=== PATIENT | female | born 1995 | race Caucasian/White ===

== ENCOUNTER 2016-10-24 08:32 | Emergency (ER) ==
[2016-10-24 08:47] VITALS: BP 144/95; TEMP 97.9; BMI 45.3
[2016-10-24 09:14] LABS: URINE PREGNANCY INTERNAL QC INTERNAL QC VALID
--- NOTE | 2016-10-24 09:32 | DI ---
EXAM: Chest two views HISTORY: Cough COMPARISON: None TECHNIQUE: Two views of the chest were performed FINDINGS: The lungs are clear. There is no pleural effusion or pneumothorax. The heart is normal in size. The mediastinal contour is normal. There are no acute abnormalities of the bones. IMPRESSION: No acute cardiopulmonary process.
--- NOTE | 2016-10-24 09:48 | ED.PDOC ---
General ED Provider: Dr. MONICA ORTIZ Chief Complaint: Cough Stated Complaint: cough Time Seen by Physician: 08:40 Mode of Arrival: Walk-In Information Source: Patient Exam Limitations: No limitations Nursing and Triage Documentation Reviewed and Agree: Yes Respiratory Complaint Exam - Respiratory Complaint/Exam Symptoms Are: Still present Timing: Constant Initial Severity: Moderate Current Severity: Moderate Location: Chest Character: Reports: Non-productive cough Aggravating: Reports: None Alleviating: Reports: None Associated Signs and Symptoms: Reports: Nasal congestion, Sore throat History of Healthcare-Acquired Pneumonia: No Related Surgical History: Reports: None Pulmonary Embolism Risk Factors: None Cardiac Risk Factors: Reports: None Pseudomonas Risk Factors: Reports: None Tuberculosis Risk Factors: Reports: None Status Asthmaticus Risk Factors: Reports: None Home Oxygen Use: No Recent Stress Test: No Recent Echo/LV Function: No Current Antibiotic Use: No Current Asthma Medication Use: No Respiratory Distress: None Inadequate Respiratory Effort: No Dysphagia Present: No Stridor Present: No JVD Present: No Accessory Muscle Use: No Retractions: Not Present Diminished Breath Sounds: No Sinus Tenderness: None Grunting Respirations: No Kussmaul Respirations: No Differential Diagnoses: Pneumonia, Bronchitis Review of Systems - Review Of Systems Constitutional: Reports: No symptoms Eyes: Reports: No symptoms Ears, Nose, Mouth, Throat: Reports: No symptoms Respiratory: Reports: Cough Cardiac: Reports: No symptoms GI: Reports: No symptoms : Reports: No symptoms Musculoskeletal: Reports: No symptoms Skin: Reports: No symptoms Neurological: Reports: No symptoms Endocrine: Reports: No symptoms Hematologic/Lymphatic: Reports: No symptoms All Other Systems: Reviewed and Negative Past Medical History - Past Medical History Endocrine: Reports: None Cardiovascular: Reports: None Respiratory: Reports: None Hematological: Reports: None Gastrointestinal: Reports: None Genitourinary: Reports: None Neuro/Psych: Reports: None Musculoskeletal: Reports: None Cancer: Reports: None Last Menstrual Period: sep 17, 2016 - Surgical History General Surgical History: Reports: None - Family History Family History: Reports: None - Social History Smoking Status: Current every day smoker, Light tobacco smoker Hx Substance Use: No Alcohol Screening: None Physical Exam - Physical Exam Appearance: Well-appearing, No pain distress, Well-nourished Eyes: ERNESTO, EOMI, Conjunctiva clear ENT: Ears normal, Nose normal, Oropharynx normal Respiratory: Airway patent, Breath sounds clear, Breath sounds equal, Respirations nonlabored Cardiovascular: RRR, Pulses normal, No rub, No murmur GI/: Soft, Nontender, No masses, Bowel sounds normal, No Organomegaly Musculoskeletal: Normal strength, ROM intact, No edema, No calf tenderness Skin: Warm, Dry, Normal color Neurological: Sensation intact, Motor intact, Reflexes intact, Cranial nerves intact, Alert, Oriented Psychiatric: Affect appropriate, Mood appropriate Critical Care Note - Critical Care Note Total Time (mins): 0 Course - Course Orders, Labs, Meds: Lab Review 10/24/16 09:05 Urine Test Negative Orders Category Date Time Status URINE Stat LAB 10/24/16 09:05 Completed CHEST, 2 VIEWS PA & LAT Stat RADS 10/24/16 09:01 Completed Vital Signs: Temp Pulse Resp BP Pulse Ox 10/24/16 08:32 97.9 F 106 H 20 144/95 H 96 Departure - Departure Time of Disposition: 09:47 Disposition: HOME SELF-CARE Discharge Problem: Cough Instructions: Cold Symptoms (ED), Acute Cough (ED), Wheezing (ED) Condition: Good Pt referred to PMD for follow-up: No Additional Instructions: Please call your Family Physician as soon as possible to schedule a follow-up appointment. Allergies/Adverse Reactions: Allergies latex Adverse Reaction (Verified 10/24/16 08:40) Difficulty Breathing Home Medications: Ambulatory Orders 1 [No Reported Medications] 10/24/16 Disposition Discussed With: Patient
== END 2016-10-24 09:55 | disposition home or self-care (01) ==
LOC: ED 08:32
DX: R05 Cough (principal); J02.9 Acute pharyngitis, unspecified; R09.81 Nasal congestion; F17.210 Nicotine dependence, cigarettes, uncomplicated
CPT/HCPCS: 81025; 99283

== ENCOUNTER 2016-12-31 16:51 | Emergency (ER) ==
[2016-12-31 16:59] VITALS: BP 144/92; TEMP 98.2; BMI 39.4
--- NOTE | 2016-12-31 17:18 | ED.PDOC ---
General ED Provider: Dr. MONICA ORTIZ Chief Complaint: Respiratory Complaint Stated Complaint: cough Time Seen by Physician: 17:00 Mode of Arrival: Walk-In Information Source: Patient Exam Limitations: No limitations Primary Care Provider: TIMOTHY MCNULTY Nursing and Triage Documentation Reviewed and Agree: Yes Respiratory Complaint Exam - Respiratory Complaint/Exam Onset/Duration: coughx 2 months Symptoms Are: Resolved Timing: Intermittent Initial Severity: Mild Current Severity: None Location: Chest Character: Reports: Non-productive cough Aggravating: Reports: None Alleviating: Reports: None, Spontaneous resolution Associated Signs and Symptoms: Denies: Rapid breathing, Dyspnea, Fever, Chills, Chest pain, Pleuritic chest pain, Wheezing, Hemoptysis, Dizziness, Calf pain, Calf swelling, Edema, URI, Nasal congestion, Hoarseness, Sinus discomfort, Vomiting, Sore throat, Weight loss, Decreased oral intake, Increased thirst, Increased appetite, Increased urination Related History: Reports: Similar episode History of Healthcare-Acquired Pneumonia: No Related Surgical History: Reports: None Pulmonary Embolism Risk Factors: None Cardiac Risk Factors: Reports: Diabetes Pseudomonas Risk Factors: Reports: None Tuberculosis Risk Factors: Reports: None Status Asthmaticus Risk Factors: Reports: None Home Oxygen Use: No Recent Stress Test: No Recent Echo/LV Function: No Current Antibiotic Use: No Current Asthma Medication Use: No Respiratory Distress: None Inadequate Respiratory Effort: No Dysphagia Present: No Stridor Present: No JVD Present: No Accessory Muscle Use: No Retractions: Not Present Grunting Respirations: No Kussmaul Respirations: No Differential Diagnoses: Pneumonia Review of Systems - Review Of Systems Constitutional: Reports: No symptoms Eyes: Reports: No symptoms Ears, Nose, Mouth, Throat: Reports: No symptoms Respiratory: Reports: Cough Cardiac: Reports: No symptoms GI: Reports: No symptoms : Reports: No symptoms Musculoskeletal: Reports: No symptoms Skin: Reports: No symptoms Neurological: Reports: No symptoms Endocrine: Reports: No symptoms Hematologic/Lymphatic: Reports: No symptoms All Other Systems: Reviewed and Negative Past Medical History - Past Medical History Endocrine: Reports: None Cardiovascular: Reports: None Respiratory: Reports: None Hematological: Reports: None Gastrointestinal: Reports: None Genitourinary: Reports: None Neuro/Psych: Reports: None Musculoskeletal: Reports: None Cancer: Reports: None Last Menstrual Period: 12/27/16 - Surgical History General Surgical History: Reports: None - Family History Family History: Reports: None - Social History Smoking Status: Current every day smoker Hx Substance Use: No Alcohol Screening: None - Immunizations Tetanus Shot up to Date: Yes Physical Exam - Physical Exam Appearance: Well-appearing, No pain distress, Well-nourished Eyes: ERNESTO, EOMI, Conjunctiva clear ENT: Ears normal, Nose normal, Oropharynx normal Respiratory: Airway patent, Breath sounds clear, Breath sounds equal, Respirations nonlabored Cardiovascular: RRR, Pulses normal, No rub, No murmur GI/: Soft, Nontender, No masses, Bowel sounds normal, No Organomegaly Musculoskeletal: Normal strength, ROM intact, No edema, No calf tenderness Skin: Warm, Dry, Normal color Neurological: Sensation intact, Motor intact, Reflexes intact, Cranial nerves intact, Alert, Oriented Psychiatric: Affect appropriate, Mood appropriate Interpretation - Radiology Interpretation Radiology Interpretation By: ED Physician Radiology Results: Negative Exam Interpreted: CXR Critical Care Note - Critical Care Note Total Time (mins): 0 Course - Course Orders, Labs, Meds: Orders Category Date Time Status CHEST, 2 VIEWS PA & LAT Stat RADS 12/31/16 17:15 Ordered Vital Signs: Temp Pulse Resp BP Pulse Ox 12/31/16 16:51 98.2 F 106 H 20 144/92 H 96 Departure - Departure Time of Disposition: 17:18 Disposition: HOME SELF-CARE Discharge Problem: Bronchitis Instructions: Acute Bronchitis (ED) Condition: Good Pt referred to PMD for follow-up: No Additional Instructions: Please call your Family Physician as soon as possible to schedule a follow-up appointment. Prescriptions: Cephalexin [Keflex] 500 mg PO Q8HR #20 capsule Allergies/Adverse Reactions: Allergies latex Adverse Reaction (Verified 12/31/16 17:03) Difficulty Breathing Home Medications: Ambulatory Orders Cephalexin [Keflex] 500 mg PO Q8HR #20 capsule 12/31/16 Escitalopram Oxalate [Lexapro] 10 mg PO DAILY 12/31/16 Fenofibrate 54 mg PO DAILY 12/31/16 Metformin HCl [Glucophage] 500 mg PO BID 12/31/16 Norethindrone [Mia-Be] 0.35 mg PO DAILY 12/31/16 Disposition Discussed With: Patient
[2016-12-31] MEDS ORDERED: DECADRON 4 MG/ML SDV IM STA (17:21)
--- NOTE | 2016-12-31 18:05 | DI ---
EXAM: Chest two views HISTORY: Cough FINDINGS: Normal cardiac and mediastinal contours. Normal pulmonary vasculature. Lungs are clear. No significant abnormality of the bony thorax. IMPRESSION: Chest radiograph within normal limits.
== END 2016-12-31 17:46 | disposition home or self-care (01) ==
LOC: ED 16:51
DX: J20.9 Acute bronchitis, unspecified (principal); E11.9 Type 2 diabetes mellitus without complications; F17.210 Nicotine dependence, cigarettes, uncomplicated
CPT/HCPCS: 96372; 99282

== ENCOUNTER 2017-03-28 17:02 | Emergency (ER) ==
[2017-03-28 17:09] VITALS: BP 138/97; TEMP 99; BMI 46.5
[2017-03-28] MEDS ORDERED: ZOFRAN 4 MG/2 ML IVP STA (17:11)
--- NOTE | 2017-03-28 17:20 | ED.PDOC ---
General ED Provider: Dr. DEANGELO BOWERS JR Chief Complaint: GI Bleed Stated Complaint: started vomiting with abd pain on and now states she has had bright red blood in her stools. last emesis was this morning mild bleeding and diarrhea 4 days ago yesterday and today passing blood[ End ]99.0 100 20 93% 138/97 03/14 Time Seen by Physician: 17:19 Mode of Arrival: Walk-In Information Source: Patient Exam Limitations: No limitations Primary Care Provider: TIMOTHY MCNULTY Nursing and Triage Documentation Reviewed and Agree: No Review of Systems - Review Of Systems Constitutional: Reports: No symptoms Eyes: Reports: No symptoms Ears, Nose, Mouth, Throat: Reports: No symptoms Respiratory: Reports: No symptoms Cardiac: Reports: No symptoms GI: Reports: Diarrhea, Nausea, Other (rectla bleeding) : Reports: No symptoms Musculoskeletal: Reports: No symptoms Skin: Reports: No symptoms Neurological: Reports: No symptoms Endocrine: Reports: No symptoms Hematologic/Lymphatic: Reports: No symptoms All Other Systems: Other Past Medical History - Past Medical History Endocrine: Reports: DM 2 (borderline diabetic 2014), Dyslipidemia Cardiovascular: Reports: Hypertension Respiratory: Reports: None Hematological: Reports: Other (ecoli as child) Gastrointestinal: Reports: None Genitourinary: Reports: None Neuro/Psych: Reports: None, Anxiety, Depression Musculoskeletal: Reports: None Cancer: Reports: None Last Menstrual Period: february 12 - Surgical History General Surgical History: Reports: None - Family History Family History: Reports: None - Social History Smoking Status: Current every day smoker Hx Substance Use: No Alcohol Screening: None Physical Exam - Physical Exam Appearance: Well-appearing, Obese Pain Distress: Moderate Eyes: ERNESTO, EOMI, Conjunctiva clear ENT: Ears normal, Nose normal, Oropharynx normal Neck: Supple Respiratory: Airway patent, Breath sounds clear, Breath sounds equal, Respirations nonlabored Cardiovascular: RRR, Pulses normal, No rub, No murmur GI/: Soft, Nontender, No masses, Bowel sounds normal, No Organomegaly, Tender (rectum right sided edema and tenderness no dre hemorrhoids consisitent with rectal fidssure no stool no blood) Musculoskeletal: Normal strength, ROM intact, No edema, No calf tenderness Skin: Warm, Dry, Normal color Neurological: Sensation intact, Motor intact, Reflexes intact, Cranial nerves intact, Alert, Oriented Psychiatric: Affect appropriate, Mood appropriate Re-Evaluation - Re-Evaluation Time of Re-Evaluation: 18:41 Status: Unchanged (complaining of ruq spasms(nontender frequent pain recalls mother with cholelithiasis) neg ct) Critical Care Note - Critical Care Note Total Time (mins): 0 Course - Course Hematology/Chemistry: 03/28/17 17:15 03/28/17 17:15 Orders, Labs, Meds: Lab Review 03/28/17 03/28/17 17:15 17:32 WBC 9.17 RBC 4.49 Hgb 14.2 Hct 40.0 MCV 89.1 MCH 31.6 H MCHC 35.5 H RDW Coeff of Ena 11.9 Plt Count 225 Immature Gran % (Auto) 0.2 Neut % (Auto) 63.9 Lymph % (Auto) 26.3 Beadle % (Auto) 5.5 Eos % (Auto) 3.6 Baso % (Auto) 0.5 Immature Gran # (Auto) 0.0 Neut # 5.9 Lymph # 2.4 Beadle # 0.5 Eos # 0.3 Baso # 0.1 Sodium 140 Potassium 4.1 Chloride 103 Carbon Dioxide 25 Anion Gap 16.1 BUN 15 Creatinine 0.87 Estimated GFR (MDRD) 81.00 BUN/Creatinine Ratio 17.24 Glucose 132 H Calcium 9.9 Total Bilirubin 0.83 AST 79 H ALT 103 H Alkaline Phosphatase 61 Total Protein 7.6 Albumin 3.9 Globulin 3.7 Albumin/Globulin Ratio 1.05 Amylase 21 L Lipase 18 Serum , Qual Negative Urine Color Yellow Urine Clarity Slightly Urine pH 5.5 Ur Specific Melrude >=1.030 Urine Protein Negative Urine Glucose (UA) Negative Urine Ketones Negative Urine Blood Negative Urine Nitrite Negative Urine Bilirubin Negative Urine Urobilinogen 0.2 Ur Leukocyte Esterase Negative Ur Squamous Epith Cells 5-10 Amorphous Sediment 1+ Urine Bacteria Trace H. pylori IgG Antibody Negative Orders Category Date Time Status ED IV/MEDIPORT/POWERPORT .ONCE EMERGENCY 03/28/17 17:09 Active ED IV/MEDIPORT/POWERPORT .ONCE EMERGENCY 03/28/17 17:11 Active AMYLASE Stat LAB 03/28/17 17:15 Completed CBC W/ AUTO DIFF Stat LAB 03/28/17 17:15 Completed COMPREHENSIVE METABOLIC PANEL Stat LAB 03/28/17 17:15 Completed H. PYLORI SCREEN Stat LAB 03/28/17 17:15 Completed LIPASE Stat LAB 03/28/17 17:15 Completed SERUM Stat LAB 03/28/17 17:15 Completed STOOL CULTURE Stat LAB 03/28/17 Stop Req URINALYSIS C & S IF INDICATED Stat LAB 03/28/17 17:32 Completed 0.9 % Sodium Chloride [Saline Flush] MEDS 03/28/17 17:09 Ordered 1 syr IVF PRN PRN 0.9 % Sodium Chloride [Saline Flush] MEDS 03/28/17 17:11 Ordered 1 syr IVF PRN PRN Ondansetron HCl/Pf [Zofran 4 mg/2 ml] MEDS 03/28/17 17:11 Discontinued 4 mg IVP ONCE STA Pantoprazole Sodium [Protonix IV] MEDS 03/28/17 18:04 Discontinued 40 mg IVP ONCE STA CT ABDOMEN/PELVIS WO CONTRAST Stat RADS 03/28/17 17:09 Taken Medications Generic Name Dose Route Start Last Admin Trade Name Freq PRN Reason Stop Dose Admin Sodium Chloride 1 syr 03/28/17 17:09 Saline Flush IVF PRN PRN To flush IV Sodium Chloride 1 syr 03/28/17 17:11 03/28/17 17:41 Saline Flush IVF 1 syr PRN PRN Administration To flush IV Discontinued Medications Generic Name Dose Route Start Last Admin Trade Name Freq PRN Reason Stop Dose Admin Ondansetron HCl 4 mg 03/28/17 17:11 03/28/17 17:40 Zofran 4 Mg/2 Ml IVP 03/28/17 17:12 4 mg ONCE STA Administration Pantoprazole Sodium 40 mg 03/28/17 18:04 03/28/17 18:18 Protonix Iv IVP 03/28/17 18:05 40 mg ONCE STA Administration Vital Signs: Temp Pulse Resp BP Pulse Ox 03/28/17 17:02 99.0 F 100 H 20 138/97 H 93 L Departure - Departure Time of Disposition: 18:14 Disposition: HOME SELF-CARE Discharge Problem: Rectal bleeding, Fissure in ano Instructions: Rectal Bleeding (ED), Anal Fissure (ED) Condition: Good Pt referred to PMD for follow-up: Yes Additional Instructions: follow up with PMD call tomorrow about gastroenterology consult discuss bleeding and right upper quadrant pain return if light headed, or if more than three bloody stools a day protoix for two to four weeks anusol suppository for pain and swelling peptobismol up to 8 times a day for diarrhea(loose stool not for blood) tylenol or norco for pain not controlled by anusol Prescriptions: Hydrocodone Bit/Acetaminophen [[place] 5-325] 1 - 2 tab PO Q6HR PRN #12 tablet PRN Reason: pain Hydrocortisone Acetate [Anusol-Hc] 25 mg RC BID PRN #14 supp.rect PRN Reason: Rectal Discomfort Pantoprazole Sodium [Protonix] 40 mg PO QDAC #30 tablet. Allergies/Adverse Reactions: Allergies latex Adverse Reaction (Verified 03/28/17 17:06) Difficulty Breathing Home Medications: Ambulatory Orders Fenofibrate 54 mg PO DAILY 12/31/16 Metformin HCl [Glucophage] 500 mg PO BID 12/31/16 Albuterol Sulfate [Proair Hfa] 2 puff IH BID 03/28/17 Escitalopram Oxalate [Lexapro] 20 mg PO DAILY 03/28/17 Fluticasone Propionate [Flonase] 1 spray NS BID 03/28/17 Hydrocodone Bit/Acetaminophen [[place] 5-325] 1 - 2 tab PO Q6HR PRN #12 tablet Hydrocortisone Acetate [Anusol-Hc] 25 mg RC BID PRN #14 supp.rect 03/28/17 Pantoprazole Sodium [Protonix] 40 mg PO QDAC #30 tablet. 03/28/17 Ranitidine HCl [Zantac] 150 mg PO BIDAC 03/28/17
[2017-03-28 17:21] LABS: BASOPHILS # (AUTO) 0.1 K/uL (0-0.2); BASOPHILS % (AUTO) 0.5 % (0.0-3.0); EOSINOPHILS # (AUTO) 0.3 K/ul (0.0-0.7); EOSINOPHILS % (AUTO) 3.6 % (0.0-7.0); HEMOGLOBIN 14.2 g/dl (12.0-16.0); IMMATURE GRANULOCYTE % (AUTO) 0.2 % (0.0-5.0); LYMPHOCYTES # (AUTO) 2.4 K/uL (0.60-3.4); LYMPHOCYTES % (AUTO) 26.3 (10.0-50.0); MEAN CORPUSCULAR HEMOGLOBIN 31.6 pg (27.0-31.0); MEAN CORPUSCULAR HGB CONC 35.5 (31.8-35.4); MEAN CORPUSCULAR VOLUME 89.1 fl (81.0-99.0); MONOCYTES # (AUTO) 0.5 K/uL (0.4-2.0); MONOCYTES % (AUTO) 5.5 (0-10); NEUTROPHILS # (AUTO) 5.9 K/ul (2.0-6.9); NEUTROPHILS % (AUTO) 63.9; PLATELET COUNT 225 10^3/uL (140-440); RED BLOOD COUNT 4.49 10^6/ul (4.20-5.40); WHITE BLOOD COUNT 9.17 K/ul (4.6-10.2)
[2017-03-28 17:31] LABS: H. PYLORI ANTIBODY NEGATIVE (NEGATIVE)
[2017-03-28 17:32] LABS: H.PYLORI INTERNAL QC INTERNAL QC VALID
[2017-03-28 17:37] LABS: SERUM PREGNANCY INTERNAL QC INTERNAL QC VALID
[2017-03-28 17:38] LABS: ALBUMIN 3.9 g/dL (3.4-5.0); ALBUMIN/GLOBULIN RATIO 1.05; ANION GAP 16.1; BILIRUBIN,TOTAL 0.83 mg/dL (0.00-1.20); BUN/CREATININE RATIO 17.24; CALCIUM 9.9 mg/dL (8.2-10.2); CREATININE 0.87 mg/dL (0.60-1.30); POTASSIUM 4.1 mmol/L (3.5-5.10); TOTAL PROTEIN 7.6 g/dL (6.4-8.2)
[2017-03-28 17:38] LABS: BILIRUBIN,URINE Negative (NEGATIVE); KETONES,URINE Negative (NEGATIVE); LEUKOCYTE ESTERASE ,URINE Negative (NEGATIVE); NITRITE,URINE Negative (NEGATIVE); PH,URINE 5.5 (5-9); PROTEIN,URINE Negative (NEGATIVE); URINE, BLOOD Negative (NEGATIVE)
[2017-03-28 17:39] LABS: ADD URINE MICROSCOPIC YES
[2017-03-28 17:40] LABS: BACTERIA,URINE TRACE (NOT PRESENT)
[2017-03-28] MEDS ORDERED: PROTONIX IV IVP STA (18:04)
--- NOTE | 2017-03-28 18:31 | CT ---
EXAM: CT abdomen pelvis without contrast HISTORY: Right side abdominal pain, vomiting , blood in stool COMPARISON: CT 05/03/2016 TECHNIQUE: Serial axial images of the abdomen pelvis were performed from the lung bases through the inferior pelvis without contrast. These were viewed in multiple planes. FINDINGS: 111Images of the lower thorax show no pulmonary infiltrate. No pleural fluid is seen. Abdomen. There is no intrperitoneal free air. The liver spleen are normal size. There is steatosis of the l iver. There is no inflammation the pancreas. There is no cholelithiasis or biliary ductal dilatati on. Adrenal glands normal. No renal calcification. There is no obstruction of either kidney or ur eter. Aorta normal caliber. There is no abdominal adenopathy. There is no small bowel obstruction. Terminal ileum appears normal. Appendix is normal. There is no acute inflammation large bowel. No pericolonic fluid or abscess is seen. Pelvis. Uterus midline. No adnexal mass. No adenopathy.. Impression 1. No bowel obstruction. Appendix normal.There is no acute inflammation of the large bowel. There is mild prominence of the wall/ mucosa of the stomach and duodenum. Correlate clinically regarding mild inflammation proximal GI tract. 2. No obstruction either kidney or ureter. 3. No cholelithiasis or biliary ductal dilatation. 4. Diffuse fatty infiltration/steatosis liver. 5. Small umbilical hernia containing fat, stable
== END 2017-03-28 18:47 | disposition home or self-care (01) ==
LOC: ED 17:02
DX: K60.2 Anal fissure, unspecified (principal); K62.5 Hemorrhage of anus and rectum; R10.11 Right upper quadrant pain; R19.7 Diarrhea, unspecified; R11.2 Nausea with vomiting, unspecified; I10 Essential (primary) hypertension; E11.9 Type 2 diabetes mellitus without complications; E78.5 Hyperlipidemia, unspecified; Z79.899 Other long term (current) drug therapy; F17.210 Nicotine dependence, cigarettes, uncomplicated
CPT/HCPCS: 36415; 80053; 81001; 82150; 83690; 84703; 85025; 86677; 96374; 96375; 99283

== ENCOUNTER 2017-11-15 00:32 | Emergency (ER) ==
[2017-11-15 00:37] VITALS: BP 145/98; TEMP 96.4; BMI 47.2
--- NOTE | 2017-11-15 00:44 | ED.PDOC ---
General ED Provider: Dr. RUT RICHTER Chief Complaint: Fall Stated Complaint: Patient states she twisted her left ankle while walking on mud. She states she heard a POP. She is still able to bear weight Time Seen by Physician: 00:40 Mode of Arrival: Walk-In Information Source: Patient Exam Limitations: No limitations Primary Care Provider: TIMOTHY MCNULTY Nursing and Triage Documentation Reviewed and Agree: Yes Reviewed sepsis parameters & appropriate labs ordered?: No System Inflammatory Response Syndrome: Not Applicable Sepsis Protocol: For patient's 13 years and over: Temp is 96.8 and below OR 101 and greater Pulse >90 BPM Resp >20/minute Acutely Altered Mental Status Are patient's symptoms suggestive of a new infection, such as: -Pneumonia -Skin, Soft Tissue -Endocarditis -UTI -Bone, Joint Infection -Implantable Device -Acute Abdominal Infection -Wound Infection -Meningitis -Blood Stream Catheter Infection -Unknown System Inflammatory Response Syndrome: Not Applicable Musculoskeletal Complaint Exam - Lower Extremity Complaint/Exam Location of Pain: Reports: Left, Ankle Mechanism of Injury: Reports: Trauma Onset/Duration: 30 min Symptoms Are: Still present Onset of Pain: Reports: Immediate Initial Severity: Severe Current Severity: Moderate Location: Reports: Diffuse Character: Reports: Aching, Throbbing Alleviating: Reports: None Aggravating: Reports: Movement, Weight bearing, Prolonged standing Able to Bear Weight: Yes Associated Signs and Symptoms: Reports: Swelling Related History: Reports: Similar episode DVT Risk Factors: Reports: None Lower Extremity Findings: Present: Swelling, Tenderness NV Bundle Intact Distal to Injury: Yes Compartment Syndrome Risk Factors: Present: Pain. Absent: Paralysis, Pallor, Pulselessness, Paresthesias Sanya's Sign Present: No Lower Extremities Picture: 1 - tenderness Differential Diagnoses: Fracture, Strain, Sprain, Tenosynovitis Review of Systems - Review Of Systems Constitutional: Reports: No symptoms Ears, Nose, Mouth, Throat: Reports: No symptoms Respiratory: Reports: No symptoms Cardiac: Reports: No symptoms GI: Reports: No symptoms Musculoskeletal: Reports: Joint pain (Left ankle ) Skin: Reports: Bruising All Other Systems: Reviewed and Negative Past Medical History - Past Medical History Previously Healthy: Yes Endocrine: Reports: DM 2 (borderline diabetic 2014), Dyslipidemia Cardiovascular: Reports: Hypertension Respiratory: Reports: None Hematological: Reports: Other (ecoli as child) Gastrointestinal: Reports: None Genitourinary: Reports: None Neuro/Psych: Reports: Anxiety, Depression Musculoskeletal: Reports: None Cancer: Reports: None Last Menstrual Period: [id number] Other Pertinent Past Medical History: obesity - Surgical History General Surgical History: Reports: None - Family History Family History: Reports: None - Social History Smoking Status: Current every day smoker Hx Substance Use: No Alcohol Screening: None - Immunizations Tetanus Shot up to Date: No Physical Exam - Physical Exam Appearance: Ill-appearing, Obese Pain Distress: Moderate Respiratory: Airway patent, Breath sounds clear, Breath sounds equal, Respirations nonlabored Cardiovascular: RRR, Pulses normal, No rub, No murmur Musculoskeletal: Limited ROM, Edema (mild ) Skin: Warm, Dry, Normal color Neurological: Sensation intact, Motor intact, Reflexes intact, Cranial nerves intact, Alert, Oriented Psychiatric: Anxious Interpretation - Radiology Interpretation Radiology Interpretation By: ED Physician Radiology Results: Negative Exam Interpreted: Other (left foot and ankle. ) Critical Care Note - Critical Care Note Total Time (mins): 0 Course - Course Orders, Labs, Meds: Orders Category Date Time Status ED APPLY ICE AFFECTED AREA .ONCE EMERGENCY 11/15/17 00:42 Active Ibuprofen [Motrin] MEDS 11/15/17 00:42 Discontinued 800 mg PO ONCE STA ANKLE, LEFT MIN 3 VIEWS Stat RADS 11/15/17 00:40 Taken FOOT, LEFT 3 VIEWS Stat RADS 11/15/17 00:40 Taken Medications Discontinued Medications Generic Name Dose Route Start Last Admin Trade Name Freq PRN Reason Stop Dose Admin Ibuprofen 800 mg 11/15/17 00:42 11/15/17 00:54 Motrin PO 11/15/17 00:43 800 mg ONCE STA Administration Vital Signs: Temp Pulse Resp BP Pulse Ox 11/15/17 00:33 96.4 F L 89 20 145/98 H 97 Departure - Departure Time of Disposition: 01:23 Disposition: HOME SELF-CARE Discharge Problem: Ankle sprain Qualifiers: Encounter type: initial encounter Involved ligament of ankle: unspecified ligament Laterality: left Qualified Code(s): S93.402A - Sprain of unspecified ligament of left ankle, initial encounter Instructions: Ankle Sprain (ED) Condition: Stable Pt referred to PMD for follow-up: Yes IPMP verified?: No Additional Instructions: Take Medications as needed Follow up with PCP in 3-5 days Prescriptions: Ibuprofen [Motrin] 600 mg PO Q6H PRN #20 tablet PRN Reason: Analgesia Allergies/Adverse Reactions: Allergies latex Adverse Reaction (Verified 11/15/17 00:37) Difficulty Breathing Home Medications: Ambulatory Orders Metformin HCl [Glucophage] 500 mg PO BID 12/31/16 Albuterol Sulfate [Proair Hfa] 2 puff IH BID 03/28/17 Escitalopram Oxalate [Lexapro] 20 mg PO DAILY 03/28/17 Fluticasone Propionate [Flonase] 1 spray NS BID 03/28/17 Ibuprofen [Motrin] 600 mg PO Q6H PRN #20 tablet 11/15/17 Disposition Discussed With: Patient
[2017-11-15] MEDS: MOTRIN PO STA (00:54)
--- NOTE | 2017-11-15 06:10 | DI ---
Exam: Left ankle 3 views History: Injury and pain Findings/Impression: No acute dayday or articular abnormality. Minor spurring on the plantar surface o f the calcaneus. There is a benign 0.9 x 1.3 cm exostosis of the lateral inferior calcaneus. Correl ate for a site of pain.
--- NOTE | 2017-11-15 06:11 | DI ---
Exam: Left foot three-view HISTORY: Injury and pain Findings / impression: No acute bony or articular abnormality. Calcaneal exostosis noted inferolate ral. Correlate for site of chronic pain. Minor spurring on the Achilles surface of the calcaneus.
== END 2017-11-15 01:31 | disposition home or self-care (01) ==
LOC: ED 00:32
DX: S99.912A Unspecified injury of left ankle, initial encounter (principal); W19.XXXA Unspecified fall, initial encounter
CPT/HCPCS: 99282

== ENCOUNTER 2017-12-09 20:15 | Emergency (ER) ==
[2017-12-09 20:21] VITALS: BP 140/92; TEMP 97.8; BMI 47.2
--- NOTE | 2017-12-09 21:22 | ED.PDOC ---
General ED Provider: Dr. NATASHA LU Chief Complaint: Nausea/Vomiting Stated Complaint: Nausea, vomiting and diarrhea, no fever hurting all over, hadflu 2 months ago Time Seen by Physician: 20:20 Mode of Arrival: Walk-In Information Source: Patient Primary Care Provider: TIMOTHY MCNULTY Nursing and Triage Documentation Reviewed and Agree: Yes Reviewed sepsis parameters & appropriate labs ordered?: No System Inflammatory Response Syndrome: Not Applicable Sepsis Protocol: For patient's 13 years and over: Temp is 96.8 and below OR 101 and greater Pulse >90 BPM Resp >20/minute Acutely Altered Mental Status Are patient's symptoms suggestive of a new infection, such as: -Pneumonia -Skin, Soft Tissue -Endocarditis -UTI -Bone, Joint Infection -Implantable Device -Acute Abdominal Infection -Wound Infection -Meningitis -Blood Stream Catheter Infection -Unknown GI Complaint Exam - Vomiting/Diarrhea Complaint/Exam Symptoms Are: Resolved Episodes of Vomiting over last 24 Hours: 4 Episodes of Diarrhea Over Last 24 Hours: 4 Initial Severity: Moderate Current Severity: Mild Character of Vomiting: Reports: Non-bilious Character of Diarrhea: Reports: Watery Aggravating: Reports: Food, Liquids Alleviating: Reports: None Associated Signs and Symptoms: Denies: Dizziness, Light-headedness, Melena, Hematemesis, Fever, Abdominal pain, Cramping Menses: Regular Recent Positive Test: No Non-GI Risk Factors: Reports: None Surgical Obstruction Risk Factors: Reports: None Related Surgical History: Reports: None Abdominal Findings: Present: None Differential Diagnoses: Viral Gastroenteritis Review of Systems - Review Of Systems Constitutional: Reports: No symptoms Eyes: Reports: No symptoms Ears, Nose, Mouth, Throat: Reports: No symptoms Respiratory: Reports: No symptoms Cardiac: Reports: No symptoms GI: Reports: Diarrhea, Vomiting : Reports: No symptoms Musculoskeletal: Reports: No symptoms Skin: Reports: No symptoms Neurological: Reports: No symptoms Endocrine: Reports: No symptoms Hematologic/Lymphatic: Reports: No symptoms All Other Systems: Reviewed and Negative Past Medical History - Past Medical History Previously Healthy: Yes Endocrine: Reports: DM 2 (borderline diabetic 2014), Dyslipidemia Cardiovascular: Reports: Hypertension Respiratory: Reports: None Hematological: Reports: Other (ecoli as child) Gastrointestinal: Reports: None Genitourinary: Reports: None Neuro/Psych: Reports: Anxiety, Depression Musculoskeletal: Reports: None Cancer: Reports: None Last Menstrual Period: SEPTEMBER (NORMAL FOR PATIENT) Other Pertinent Past Medical History: obesity - Surgical History General Surgical History: Reports: None - Family History Family History: Reports: None - Social History Smoking Status: Former smoker Hx Substance Use: No Alcohol Screening: Occasionally - Immunizations Tetanus Shot up to Date: Yes Physical Exam - Physical Exam Appearance: Ill-appearing, Obese Eyes: ERNESTO, EOMI, Conjunctiva clear ENT: Ears normal, Nose normal, Oropharynx normal Respiratory: Airway patent, Breath sounds clear, Breath sounds equal, Respirations nonlabored Cardiovascular: RRR, Pulses normal, No rub, No murmur GI/: Soft, Nontender, No masses, Bowel sounds normal, No Organomegaly Musculoskeletal: Normal strength, ROM intact, No edema, No calf tenderness Skin: Warm, Dry, Normal color Neurological: Sensation intact, Motor intact, Reflexes intact, Cranial nerves intact, Alert, Oriented Psychiatric: Affect appropriate, Mood appropriate Critical Care Note - Critical Care Note Total Time (mins): 20 Course - Course Hematology/Chemistry: 12/09/17 20:48 12/09/17 20:48 Orders, Labs, Meds: Lab Review 12/09/17 12/09/17 12/09/17 20:36 20:48 20:48 WBC 9.74 RBC 4.39 Hgb 13.5 Hct 39.1 MCV 89.1 MCH 30.8 MCHC 34.5 RDW Coeff of Ena 11.9 Plt Count 221 Immature Gran % (Auto) 0.3 Neut % (Auto) 61.3 Lymph % (Auto) 29.4 [place] % (Auto) 5.9 Eos % (Auto) 2.8 Baso % (Auto) 0.3 Immature Gran # (Auto) 0.0 Neut # (Auto) 6.0 Lymph # (Auto) 2.9 [place] # (Auto) 0.6 Eos # (Auto) 0.3 Baso # (Auto) 0.0 Sodium 139 Potassium 4.0 Chloride 102 Carbon Dioxide 28 Anion Gap 13.0 BUN 11 Creatinine 0.76 Estimated GFR (MDRD) 93.00 BUN/Creatinine Ratio 14.47 Glucose 123 H Calcium 9.7 Total Bilirubin 0.9 AST 81 H ALT 105 H Alkaline Phosphatase 68 Total Protein 7.7 Albumin 3.7 Globulin 4.0 Albumin/Globulin Ratio 0.93 Influ A Molecular Assay Negative by naat Influ B Molecular Assay Negative by naat Orders Category Date Time Status CBC W/ AUTO DIFF Stat LAB 12/09/17 20:48 Completed CMP [COMPREHENSIVE METABOLIC PANEL] Stat LAB 12/09/17 20:48 Completed FLU A/B MOLECULAR Stat LAB 12/09/17 20:36 Completed Vital Signs: Temp Pulse Resp BP Pulse Ox 12/09/17 20:16 97.8 F 90 15 140/92 H 98 Departure - Departure Time of Disposition: 21:22 Disposition: HOME SELF-CARE Discharge Problem: Gastroenteritis Instructions: Gastroenteritis (ED), Dehydration (ED) Condition: Stable Pt referred to PMD for follow-up: Yes IPMP verified?: No Additional Instructions: Increase hydration soft diet probiotics or yogurt Prescriptions: Loperamide HCl [Imodium] 2 mg PO LOOSE STOOL PRN PRN #14 tablet PRN Reason: Diarrhea Ondansetron [Zofran Odt] 4 mg PO Q8H #20 tab.rapdis Allergies/Adverse Reactions: Allergies latex Adverse Reaction (Verified 12/09/17 20:19) Difficulty Breathing Home Medications: Ambulatory Orders Albuterol Sulfate [Proair Hfa] 2 puff IH BID 03/28/17 Fluticasone Propionate [Flonase] 1 spray NS BID 03/28/17 Loperamide HCl [Imodium] 2 mg PO LOOSE STOOL PRN PRN #14 tablet 12/09/17 Metformin HCl 500 mg PO BID 12/09/17 Ondansetron [Zofran Odt] 4 mg PO Q8H #20 tab.rapdis 12/09/17 Sertraline HCl [Zoloft] 100 mg PO DAILY 12/09/17 Varenicline Tartrate [Chantix] 0.5 mg PO BID 12/09/17 Disposition Discussed With: Patient
== END 2017-12-09 21:31 | disposition home or self-care (01) ==
LOC: ED 20:15
DX: K52.9 Noninfective gastroenteritis and colitis, unspecified (principal); E11.9 Type 2 diabetes mellitus without complications; I10 Essential (primary) hypertension; E78.5 Hyperlipidemia, unspecified; Z79.899 Other long term (current) drug therapy
CPT/HCPCS: 36415; 80053; 85025; 87502; 99283

== ENCOUNTER 2018-02-13 22:29 | Emergency (ER) ==
[2018-02-13 22:43] VITALS: BP 144/96; TEMP 98.9; BMI 48.7
--- NOTE | 2018-02-13 22:54 | ED.PDOC ---
General ED Provider: Dr. RUT RICHTER Chief Complaint: Nausea/Vomiting Stated Complaint: Patient is a 22 year old female who states that she ate chinees food 5 days ago and has had nausea and diarrhea since, has had fever and Chills. The highest being 100.8 F . States he had emesis x 5 the last 24 hours, last episode at 10pm tonight. Also complains of small amounts of diarrhea x11 the last 24 hours, last episode at 915pm. Currently feels nauseated and light headed Feel blotted.. Time Seen by Physician: 22:51 Mode of Arrival: Walk-In Information Source: Patient Exam Limitations: No limitations Primary Care Provider: TIMOTHY MCNULTY Nursing and Triage Documentation Reviewed and Agree: Yes Reviewed sepsis parameters & appropriate labs ordered?: No System Inflammatory Response Syndrome: Not Applicable Sepsis Protocol: For patient's 13 years and over: Temp is 96.8 and below OR 101 and greater Pulse >90 BPM Resp >20/minute Acutely Altered Mental Status Are patient's symptoms suggestive of a new infection, such as: -Pneumonia -Skin, Soft Tissue -Endocarditis -UTI -Bone, Joint Infection -Implantable Device -Acute Abdominal Infection -Wound Infection -Meningitis -Blood Stream Catheter Infection -Unknown Review of Systems - Review Of Systems Constitutional: Reports: Chills, Fever Eyes: Reports: No symptoms Ears, Nose, Mouth, Throat: Reports: No symptoms Respiratory: Reports: No symptoms Cardiac: Reports: No symptoms GI: Reports: Diarrhea, Nausea, Poor appetite, Vomiting : Reports: No symptoms Musculoskeletal: Reports: No symptoms Skin: Reports: No symptoms Neurological: Reports: No symptoms Endocrine: Reports: No symptoms Hematologic/Lymphatic: Reports: No symptoms All Other Systems: Reviewed and Negative Past Medical History - Past Medical History Previously Healthy: Yes Endocrine: Reports: DM 2 (borderline diabetic 2014), Dyslipidemia Cardiovascular: Reports: Hypertension Respiratory: Reports: None Hematological: Reports: Other (ecoli as child) Gastrointestinal: Reports: None Genitourinary: Reports: None Neuro/Psych: Reports: Anxiety, Depression Musculoskeletal: Reports: None Cancer: Reports: None Last Menstrual Period: JANUARY 05, 2018 Other Pertinent Past Medical History: obesity, Primary ovarian failure. - Surgical History General Surgical History: Reports: None - Family History Family History: Reports: None - Social History Smoking Status: Former smoker Hx Substance Use: No Alcohol Screening: None - Immunizations Tetanus Shot up to Date: Yes Physical Exam - Physical Exam Appearance: Ill-appearing, Obese Ill-appearing: Moderate Pain Distress: Moderate Eyes: ERNESTO, EOMI, Conjunctiva clear Neck: Supple Re-Evaluation - Re-Evaluation Time of Re-Evaluation: 00:26 Status: Improved (feels better but still blotted. ) Vital Signs Stable: Yes Pain Level: mild Appearance: NAD Critical Care Note - Critical Care Note Total Time (mins): 30 Course - Course Hematology/Chemistry: 02/13/18 23:04 02/13/18 23:04 Orders, Labs, Meds: Lab Review 02/13/18 02/13/18 23:04 23:04 WBC 11.57 H RBC 4.50 Hgb 13.9 Hct 40.5 MCV 90.0 MCH 30.9 MCHC 34.3 RDW Coeff of Ena 12.3 Plt Count 205 Immature Gran % (Auto) 0.3 Neut % (Auto) 67.0 Lymph % (Auto) 23.9 [place] % (Auto) 5.3 Eos % (Auto) 3.2 Baso % (Auto) 0.3 Immature Gran # (Auto) 0.0 Neut # (Auto) 7.8 H Lymph # (Auto) 2.8 [place] # (Auto) 0.6 Eos # (Auto) 0.4 Baso # (Auto) 0.0 Sodium 138 Potassium 4.0 Chloride 102 Carbon Dioxide 24 Anion Gap 16.0 BUN 14 Creatinine 0.80 Estimated GFR (MDRD) 88.00 BUN/Creatinine Ratio 17.50 Glucose 115 H Calcium 9.7 Total Bilirubin 1.1 AST 53 H ALT 94 H Alkaline Phosphatase 73 Total Protein 7.5 Albumin 3.9 Globulin 3.6 Albumin/Globulin Ratio 1.08 Orders Category Date Time Status ED IV/MEDIPORT/POWERPORT .ONCE EMERGENCY 02/13/18 22:55 Active CBC W/ AUTO DIFF Stat LAB 02/13/18 23:04 Completed COMPREHENSIVE METABOLIC PANEL Stat LAB 02/13/18 23:04 Completed 0.9 % Sodium Chloride [Saline Flush] MEDS 02/13/18 22:55 Discontinued 1 syr IVF PRN PRN Dicyclomine Inj [Bentyl] MEDS 02/13/18 22:55 Discontinued 20 mg IM ONCE STA Ondansetron HCl/Pf [Zofran 4 mg/2 ml] MEDS 02/13/18 22:55 Discontinued 4 mg IVP ONCE STA Ringers Lactated Solution [Lactated Ringers] 1,000 ml MEDS 02/13/18 22:[address] ABD/PEL WO RENAL STONE PROT Stat RADS 02/14/18 00:29 Completed Medications Discontinued Medications Generic Name Dose Route Start Last Admin Trade Name Freq PRN Reason Stop Dose Admin Dicyclomine HCl 20 mg 02/13/18 22:55 02/13/18 23:25 Bentyl IM 02/13/18 22:56 20 mg ONCE STA Administration Lactated Ringer's 1,000 mls @ 1,000 mls/hr 02/13/18 22:55 02/13/18 23:15 Lactated Ringers IV 02/13/18 23:54 1,000 mls/hr BOLUS STA Administration Ondansetron HCl 4 mg 02/13/18 22:55 02/13/18 23:25 Zofran 4 Mg/2 Ml IVP 02/13/18 22:56 4 mg ONCE STA Administration Sodium Chloride 1 syr 02/13/18 22:55 02/13/18 23:15 Saline Flush IVF 1 syr PRN PRN Administration To flush IV Vital Signs: Temp Pulse Resp BP Pulse Ox 02/13/18 22:30 98.9 F 102 H 20 144/96 H 97 Departure - Departure Time of Disposition: 01:39 Disposition: HOME SELF-CARE Discharge Problem: Gastritis and duodenitis Nausea & vomiting Qualifiers: Vomiting type: unspecified Vomiting Intractability: non-intractable Qualified Code(s): R11.2 - Nausea with vomiting, unspecified Instructions: Gastritis (ED), Acute Nausea and Vomiting (ED) Condition: Good Pt referred to PMD for follow-up: Yes IPMP verified?: No Additional Instructions: Push fluids Go on a clear liquid diet Follow up with PCP in 3 days Prescriptions: Dicyclomine HCl [Bentyl] 10 mg PO TID PRN #20 capsule PRN Reason: Abdominal Pain Ondansetron HCl [Zofran Tab] 4 mg PO Q8H PRN #14 tablet PRN Reason: Nausea / Vomiting Allergies/Adverse Reactions: Allergies latex Adverse Reaction (Verified 02/13/18 22:42) Difficulty Breathing Home Medications: Ambulatory Orders Albuterol Sulfate [Proair Hfa] 2 puff IH BID 03/28/17 Fluticasone Propionate [Flonase] 1 spray NS BID 03/28/17 Metformin HCl 500 mg PO BID 12/09/17 Sertraline HCl [Zoloft] 100 mg PO DAILY 12/09/17 Loperamide HCl [Imodium] 2 mg PO DIRECTED PRN 02/13/18 Dicyclomine HCl [Bentyl] 10 mg PO TID PRN #20 capsule 02/14/18 Ondansetron HCl [Zofran Tab] 4 mg PO Q8H PRN #14 tablet 02/14/18
[2018-02-13] MEDS ORDERED: ZOFRAN 4 MG/2 ML IVP STA (22:55)
[2018-02-13] MEDS ORDERED: BENTYL IM STA (22:55)
[2018-02-13] MEDS ORDERED: LACTATED RINGERS 1,000 ML IV STA (22:55)
--- NOTE | 2018-02-14 01:28 | CT ---
EXAM: CT of the abdomen and pelvis without contrast. HISTORY: Distended abdomen. Diffuse tenderness. PROCEDURE: Contiguous axial CT images of the abdomen and pelvis without contrast with coronal and sa gittal reformats. FINDINGS: There is diffuse fatty infiltration of the liver. The gallbladder, pancreas, spleen, adrena l glands and kidneys are normal in appearance. The abdominal aorta is normal in appearance. The appe ndix is normal in appearance. The small bowel and colon are partially decompressed which limits the evaluation. The visualized loops of bowel are normal in appearance. No free fluid or free air in th e abdomen or pelvis. The bladder is adequately filled with no abnormality identified. The uterus is u nremarkable. The bones and soft tissues are unremarkable. Impression: No acute findings in the abdomen or pelvis as described. Diffuse fatty infiltration of the liver.
== END 2018-02-14 01:53 | disposition home or self-care (01) ==
LOC: ED 22:29
DX: K29.90 Gastroduodenitis, unspecified, without bleeding (principal); R11.2 Nausea with vomiting, unspecified
CPT/HCPCS: 36415; 74176; 80053; 85025; 96360; 96372; 96375; 99283

== ENCOUNTER 2018-03-26 13:56 | Emergency (ER) | payer OTHER ==
[2018-03-26 14:02] VITALS: BP 135/93; TEMP 97.8; BMI 48.3
[2018-03-26] MEDS ORDERED: PROTONIX IV IVP STA (14:08)
[2018-03-26] MEDS ORDERED: SODIUM CHLORIDE 1,000 ML IV STA (14:08)
[2018-03-26] MEDS ORDERED: GI COCKTAIL PO STA (14:08)
[2018-03-26] MEDS ORDERED: MORPHINE 2 MG/ML SYRINGE IVP STA (14:09)
[2018-03-26] MEDS ORDERED: ZOFRAN 4 MG/2 ML IVP STA (14:10)
--- NOTE | 2018-03-26 15:12 | CT ---
EXAM: CT of the abdomen pelvis without contrast History: Abdominal pain. Comparison: CT abdomen pelvis 03/28/2017 Technique: Multiplanar CT images through the abdomen pelvis were obtained without the administration of IV contrast Findings: Lung bases are clear. No acute osseous abnormalities. The liver is fatty. No discrete gallstones identified by CT. No focal liver or splenic lesions. No peripancreatic inflammation. Adrenal glands are unremarkable. No dilated loops of bowel. The appe ndix is normal. No free air and no ascites. No bladder wall thickening. Adnexal structures appear appropriate for patient's age. No renal stones and no hydronephrosis. No ureteral calculi. Impression: 1. No acute intra-abdominal or pelvic process. 2. Hepatic steatosis.
--- NOTE | 2018-03-26 15:47 | ED.PDOC ---
General ED Provider: Dr. EDWIN LOPEZ-ER Chief Complaint: Abdominal Pain Stated Complaint: my esophagus is on fire--i feel burning in my chest and my throat Time Seen by Physician: 14:00 Mode of Arrival: Walk-In Information Source: Patient Exam Limitations: No limitations Primary Care Provider: TIMOTHY MCNULTY Nursing and Triage Documentation Reviewed and Agree: Yes Does patient meet sepsis criteria?: No System Inflammatory Response Syndrome: Not Applicable Sepsis Protocol: For patient's 13 years and over: Temp is 96.8 and below OR 101 and greater Pulse >90 BPM Resp >20/minute Acutely Altered Mental Status Are patient's symptoms suggestive of a new infection, such as: -Pneumonia -Skin, Soft Tissue -Endocarditis -UTI -Bone, Joint Infection -Implantable Device -Acute Abdominal Infection -Wound Infection -Meningitis -Blood Stream Catheter Infection -Unknown GI Complaint Exam - Abdominal Pain Complaint/Exam Onset: Gradual Duration: several days Symptoms Are: Still present Timing: Intermittent Initial Severity: Mild Current Severity: Moderate Location of Pain: Epigastric Character: Reports: Burning Aggravating: Reports: Position, Eating Alleviating: Reports: Position Associated Signs and Symptoms: Reports: Nausea Differential Diagnoses: Constipation, Pancreatitis Review of Systems - Review Of Systems Constitutional: Reports: No symptoms Eyes: Reports: No symptoms Ears, Nose, Mouth, Throat: Reports: No symptoms Respiratory: Reports: No symptoms Cardiac: Reports: No symptoms GI: Reports: Abdominal pain, Nausea : Reports: No symptoms Musculoskeletal: Reports: No symptoms Skin: Reports: No symptoms Neurological: Reports: No symptoms Endocrine: Reports: No symptoms Hematologic/Lymphatic: Reports: No symptoms All Other Systems: Reviewed and Negative Past Medical History - Past Medical History Previously Healthy: Yes Endocrine: Reports: DM 2 (borderline diabetic 2014), Dyslipidemia Cardiovascular: Reports: Hypertension Respiratory: Reports: None Hematological: Reports: Other (ecoli as child) Gastrointestinal: Reports: None Genitourinary: Reports: None Neuro/Psych: Reports: Anxiety, Depression Musculoskeletal: Reports: None Cancer: Reports: None Last Menstrual Period: 03/08 Other Pertinent Past Medical History: obesity, Primary ovarian failure. - Surgical History General Surgical History: Reports: None - Family History Family History: Reports: None - Social History Smoking Status: Former smoker Hx Substance Use: No Alcohol Screening: None - Immunizations Tetanus Shot up to Date: Yes Physical Exam - Physical Exam Appearance: Well-appearing, No pain distress, Well-nourished Pain Distress: Mild Eyes: ERNESTO ENT: Ears normal, Nose normal, Oropharynx normal Neck: Supple Respiratory: Airway patent, Breath sounds clear, Breath sounds equal, Respirations nonlabored Cardiovascular: RRR, Pulses normal, No rub, No murmur GI/: Soft, Nontender, No masses, Bowel sounds normal, No Organomegaly Musculoskeletal: Normal strength Skin: Warm, Dry, Normal color Neurological: Sensation intact, Motor intact, Reflexes intact, Cranial nerves intact, Alert, Oriented Psychiatric: Affect appropriate, Mood appropriate Interpretation - Radiology Interpretation Radiology Interpretation By: Radiologist Radiology Results: Positive Exam Interpreted: CT Scan (fatty liver") Re-Evaluation - Re-Evaluation Time of Re-Evaluation: 15:47 Status: Improved Vital Signs Stable: Yes Pain Level: 0 Appearance: NAD Lungs: Clear Skin: Warm and Dry Neuro: Alert and Oriented X3 CV: RRR Critical Care Note - Critical Care Note Total Time (mins): 0 Course - Course Hematology/Chemistry: 03/26/18 14:10 03/26/18 14:10 Orders, Labs, Meds: Lab Review 03/26/18 03/26/18 03/26/18 14:10 14:10 14:10 WBC 8.88 RBC 4.77 Hgb 14.8 Hct 42.8 MCV 89.7 MCH 31.0 MCHC 34.6 RDW Coeff of Ena 12.3 Plt Count 207 Immature Gran % (Auto) 0.1 Neut % (Auto) 66.2 Lymph % (Auto) 25.1 [place] % (Auto) 5.1 Eos % (Auto) 2.9 Baso % (Auto) 0.6 Immature Gran # (Auto) 0.0 Neut # (Auto) 5.9 Lymph # (Auto) 2.2 [place] # (Auto) 0.5 Eos # (Auto) 0.3 Baso # (Auto) 0.1 ESR 25 H Sodium 138 Potassium 4.4 Chloride 103 Carbon Dioxide 24 Anion Gap 15.4 BUN 13 Creatinine 0.77 Estimated GFR (MDRD) 92.00 BUN/Creatinine Ratio 16.88 Glucose 134 H Calcium 9.6 Total Bilirubin 1.6 H AST 136 H ALT 137 H Alkaline Phosphatase 59 Total Protein 7.9 Albumin 3.8 Globulin 4.1 Albumin/Globulin Ratio 0.93 Amylase 21 L Lipase 15 Serum , Qual Negative Urine Color Urine Clarity Urine pH Ur Specific [place] Urine Protein Urine Glucose (UA) Urine Ketones Urine Blood Urine Nitrite Urine Bilirubin Urine Urobilinogen Ur Leukocyte Esterase Urine Microscopic RBC Urine Microscopic WBC Ur Squamous Epith Cells Urine Bacteria 03/26/18 14:12 WBC RBC Hgb Hct MCV MCH MCHC RDW Coeff of Ena Plt Count Immature Gran % (Auto) Neut % (Auto) Lymph % (Auto) [place] % (Auto) Eos % (Auto) Baso % (Auto) Immature Gran # (Auto) Neut # (Auto) Lymph # (Auto) [place] # (Auto) Eos # (Auto) Baso # (Auto) ESR Sodium Potassium Chloride Carbon Dioxide Anion Gap BUN Creatinine Estimated GFR (MDRD) BUN/Creatinine Ratio Glucose Calcium Total Bilirubin AST ALT Alkaline Phosphatase Total Protein Albumin Globulin Albumin/Globulin Ratio Amylase Lipase Serum , Qual Urine Color Yellow Urine Clarity Clear Urine pH 6.0 Ur Specific [place] 1.020 Urine Protein Negative Urine Glucose (UA) Negative Urine Ketones Negative Urine Blood Trace-intact Urine Nitrite Negative Urine Bilirubin Negative Urine Urobilinogen 0.2 Ur Leukocyte Esterase Negative Urine Microscopic RBC 2-5 Urine Microscopic WBC 2-5 Ur Squamous Epith Cells 10-20 Urine Bacteria 1+ Orders Category Date Time Status IV [ED IV/MEDIPORT/POWERPORT] .ONCE EMERGENCY 03/26/18 14:08 Active AMYLASE Stat LAB 03/26/18 14:10 Completed CBC W/ AUTO DIFF Stat LAB 03/26/18 14:10 Completed COMPREHENSIVE METABOLIC PANEL Stat LAB 03/26/18 14:10 Completed ESR Stat LAB 03/26/18 14:10 Completed LIPASE Stat LAB 03/26/18 14:10 Completed SERUM Stat LAB 03/26/18 14:10 Completed URINALYSIS C & S IF INDICATED Stat LAB 03/26/18 14:12 Completed URINE CULTURE Stat LAB 03/26/18 14:12 Received 0.9 % Sodium Chloride [Saline Flush] MEDS 03/26/18 14:08 Ordered 1 syr IVF PRN PRN Mag-Al Plus//Lidocaine [Gi Cocktail] MEDS 03/26/18 14:08 Discontinued 30 ml PO ONCE STA Morphine Sulfate [Morphine 2 mg/ml Syringe] MEDS 03/26/18 14:09 Discontinued 2 mg IVP ONCE STA Ondansetron HCl/Pf [Zofran 4 mg/2 ml] MEDS 03/26/18 14:10 Discontinued 4 mg IVP ONCE STA Pantoprazole Sodium [Protonix IV] MEDS 03/26/18 14:08 Discontinued 40 mg IVP ONCE STA Sodium Chloride 0.9% [Sodium Chloride] 1,000 ml MEDS 03/26/18 14:[address] ABDOMEN/PELVIS WO CONTRAST Stat RADS 03/26/18 14:09 Completed Medications Generic Name Dose Route Start Last Admin Trade Name Freq PRN Reason Stop Dose Admin Sodium Chloride 1 syr 03/26/18 14:08 Saline Flush IVF PRN PRN To flush IV Discontinued Medications Generic Name Dose Route Start Last Admin Trade Name Freq PRN Reason Stop Dose Admin Al Hydroxide/Mg Hydroxide 30 ml 03/26/18 14:08 03/26/18 14:25 Gi Cocktail PO 03/26/18 14:09 30 ml ONCE STA Administration Sodium Chloride 1,000 mls @ 1,000 mls/hr 03/26/18 14:08 03/26/18 14:32 Sodium Chloride IV 03/26/18 15:07 1,000 mls/hr BOLUS STA Administration Morphine Sulfate 2 mg 03/26/18 14:09 03/26/18 14:25 Morphine 2 Mg/Ml Syringe IVP 03/26/18 14:10 2 mg ONCE STA Administration Ondansetron HCl 4 mg 03/26/18 14:10 03/26/18 14:32 Zofran 4 Mg/2 Ml IVP 03/26/18 14:11 4 mg ONCE STA Administration Pantoprazole Sodium 40 mg 03/26/18 14:08 03/26/18 14:31 Protonix Iv IVP 03/26/18 14:09 40 mg ONCE STA Administration Vital Signs: Temp Pulse Resp BP Pulse Ox 03/26/18 13:56 97.8 F 87 16 135/93 H 98 Departure - Departure Time of Disposition: 15:47 Disposition: HOME SELF-CARE Discharge Problem: Steatohepatitis GERD (gastroesophageal reflux disease) Qualifiers: Esophagitis presence: without esophagitis Qualified Code(s): K21.9 - Gastro- esophageal reflux disease without esophagitis Instructions: Gastroesophageal Reflux Disease (ED), Non-Alcoholic Fatty Liver Disease (ED) Condition: Good Pt referred to PMD for follow-up: No IPMP verified?: No Additional Instructions: protonix 40mg #30--elevate hob---avoid caffeine and nicotine---f/u with pcp Allergies/Adverse Reactions: Allergies latex Adverse Reaction (Verified 03/26/18 14:06) Difficulty Breathing Home Medications: Ambulatory Orders Albuterol Sulfate [Proair Hfa] 2 puff IH BID 03/28/17 Metformin HCl 500 mg PO BID 12/09/17 Sertraline HCl [Zoloft] 100 mg PO DAILY 12/09/17 Disposition Discussed With: Patient
== END 2018-03-26 16:10 | disposition home or self-care (01) ==
LOC: ED 13:56
DX: K21.9 Gastro-esophageal reflux disease without esophagitis (principal); K75.81 Nonalcoholic steatohepatitis (NASH); E11.9 Type 2 diabetes mellitus without complications; E78.5 Hyperlipidemia, unspecified; I10 Essential (primary) hypertension
CPT/HCPCS: 36415; 80053; 81001; 82150; 83690; 84703; 85025; 85651; 87086; 96361; 96366; 96367; 96374; 96375; 99284